=== PATIENT | female | born 1990 | race Caucasian/White ===

== ENCOUNTER 2021-11-13 00:53 | Emergency (ER) | payer OTHER ==
--- NOTE | 2021-11-13 01:17 | ED Physician Documentation ---
PD HPI FEMALE - Stated complaint Stated Complaint: VAG BLEEDING PG 9+ WKS - Chief complaint Chief Complaint: Abd Pain - History obtained from History obtained from: Patient - Additional information Additional information: The patient comes to the emergency department with chief complaint of vaginal bleeding that started today. The patient is approximately 9 and half weeks , she believes, and has been seeing a utility appraiser for care. A couple of weeks ago, the patient states the utility appraiser did an ultrasound and found a sac in the uterus but no obvious heartbeat. The patient states that the utility appraiser told her that it was a little too early to be able to see a heartbeat. The patient states that she began to notice a slight lower abdominal cramping yesterday and then today, began to spot very mildly. This progressed to heavier bleeding and finally, passage of clots. She states she talked to her utility appraiser and was told to come here. The patient states that she is not feeling light headed. Her cramps and bleeding have remained fairly stable. No other complaints at this time. Review of Systems Ten Systems: 10 systems reviewed and negative Constitutional: reports: Reviewed and negative Eyes: reports: Reviewed and negative Ears: reports: Reviewed and negative Nose: reports: Reviewed and negative Throat: reports: Reviewed and negative Cardiac: reports: Reviewed and negative Respiratory: reports: Reviewed and negative GI: reports: Reviewed and negative : reports: Vaginal bleeding, Now EGA Skin: reports: Reviewed and negative Musculoskeletal: reports: Reviewed and negative Neurologic: reports: Reviewed and negative Psychiatric: reports: Reviewed and negative Endocrine: reports: Reviewed and negative Immunocompromised: reports: Reviewed and negative PD PAST MEDICAL HISTORY - Past Medical History Past Medical History: Yes Cardiovascular: Murmur Respiratory: Pneumonia, Other Other Past Medical History: Mononucleosis when as achild. - Past Surgical History Past Surgical History: No - Present Medications Home Medications: Ambulatory Orders Medication Instructions Recorded Confirmed No Known Home Medications 11/13/21 11/13/21 - Allergies Allergies/Adverse Reactions: Allergies Allergy/AdvReac Type Severity Reaction Status Date / Time No Known Drug Allergies Allergy Verified 11/13/21 01:03 - Social History Does the pt smoke?: No Smoking Status: Never smoker Does the pt drink ETOH?: Yes ETOH Use: Liquor Does the pt have substance abuse?: No - Immunizations Immunizations are current?: No Immunizations: TDAP >10years/unknown - POLST Patient has POLST: No PD ED PE NORMAL - Vitals Vital signs reviewed: Yes - General General: Alert and oriented X 3, No acute distress, Well developed/nourished - HEENT HEENT: Atraumatic, PERRL, EOMI, Moist mucous membranes - Neck Neck: Supple, no meningeal sign - Cardiac Cardiac: RRR, No murmur, Strong equal pulses - Respiratory Respiratory: No respiratory distress, Clear bilaterally - Abdomen Abdomen: Soft, Non tender, Non distended - Derm Derm: Normal color, Warm and dry, No rash - Extremities Extremities: No deformity - Neuro Neuro: Alert and oriented X 3 - Psych Psych: Normal mood, Normal affect Results - Vitals Vitals: Vital Signs - 24 hr 11/13/21 11/13/21 00:59 02:30 Temperature 36.1 C L Heart Rate 92 74 Respiratory 18 16 Rate Blood Pressure 140/93 H 127/76 O2 Saturation 99 99 Oxygen O2 Source Room air - Labs Labs: Laboratory Tests 11/13/21 11/13/21 01:20 01:20 HCG, Quant 98607.00 Urine Color YELLOW Urine Clarity HAZY Urine pH 6.5 Ur Specific [place] 1.015 Urine Protein NEGATIVE Urine Glucose (UA) NEGATIVE Urine Ketones NEGATIVE Urine Occult Blood LARGE H Urine Nitrite NEGATIVE Urine Bilirubin NEGATIVE Urine Urobilinogen 0.2 (NORMAL) Ur Leukocyte Esterase NEGATIVE Urine RBC TNTC H Urine WBC 0-3 Ur Squamous Epith Cells FEW Squamous Urine Bacteria Rare Ur Microscopic Review INDICATED Urine Culture Comments NOT INDICATED PD MEDICAL DECISION MAKING - ED course Complexity details: reviewed results, re-evaluated patient, considered differential, d/w patient, d/w family ED course: The patient was hemodynamically stable and did not have any symptoms or signs of hemodynamic instability or excessive blood loss. I discussed with the patient that unfortunately we do not have electronic service technician business economist tonight, but given that she has had an ultrasound demonstrating intrauterine , the likelihood of concurrent ectopic is low. The patient most likely is miscarrying, given the heavy bleeding she is describing in the early stage of her . I discussed with her that she may return in the morning after 8:00 for ultrasound or she may call her utility appraiser and see if her utility appraiser can set this up for her. Her quantitative hCG today is just over 41,000, which is still fairly significantly high. We have discussed the usual indications for return. Departure - Departure Disposition: 01 Home, Self Care Clinical Impression: Threatened miscarriage in early Condition: Stable Instructions: ED Miscarriage Poss Comments: Your hormone level this evening was 41,246. Unfortunately, we do not have ultrasound here tonight but will have an electronic service technician in after 8:00 this morning. As you have already had an ultrasound showing a sac in the uterus, it is most likely that you have a strictly uterine , though there is still a very small chance that you could also have an ectopic , as well. For this reason it is important that you do pursue a repeat ultrasound either by returning here or speaking with your utility appraiser and getting that set up through her.
[2021-11-13 01:29] LABS: BILIRUBIN,URINE NEGATIVE (NEGATIVE); CLARITY,URINE HAZY (CLEAR); GLUCOSE, URINE (UA) NEGATIVE (NEGATIVE); KETONES,URINE (UA) NEGATIVE (NEGATIVE); LEUKOCYTE ESTERASE, URINE NEGATIVE (NEGATIVE); NITRITE,URINE NEGATIVE (NEGATIVE); OCCULT BLOOD,URINE LARGE (NEGATIVE); PH,URINE 6.5 PH (5.0-7.5); PROTEIN,URINE NEGATIVE (NEGATIVE); UROBILINOGEN,URINE 0.2 (NORMAL) E.U./dL (NORMAL)
[2021-11-13 01:34] LABS: WBC,URINE 0-3 /HPF (0-5)
[2021-11-13 01:35] LABS: BACTERIA,URINE Rare /HPF (None Seen); RBC,URINE TNTC /HPF (0-5); SQUAMOUS EPITHELIAL CELL,UR FEW Squamous (<= Few)
[2021-11-13 02:30] VITALS: BP 127/76
== END 2021-11-13 08:29 | disposition home or self-care (01) ==
LOC: MERGE 00:53 → ED 00:53
DX: O20.0 Threatened abortion (principal); Z3A.09 9 weeks gestation of pregnancy
CPT/HCPCS: 36415; 81001; 81003; 84702; 87086; 99282; 99283